=== PATIENT | male | born 2000 | race Caucasian/White ===

== ENCOUNTER 2022-10-12 19:25 | Emergency (ER) | payer OTHER ==
[~2022-10-12] VITALS: Ht 177.8 cm; Wt 86.2 kg
--- NOTE | 2022-10-12 20:06 | ED Lower Extremity ---
General Chief Complaint: Laceration Stated Complaint: NEEDLE STUCK IN RIGHT FOOT Nursing Triage Note: REPORTS PUNCTURE WOUND TO RIGHT PLANTAR FOOT APPROX. 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 Source: patient Exam Limitations: no limitations History of Present Illness Date Seen by Provider: Oct 12, 2022 Time Seen by Provider: 20:01 Initial Comments Patient is a 22-year-old man who presents the ED for foreign body needle stuck in his right foot 2 hours ago at work. Patient was seen at [facility] this evening and had a puncture wound evaluated today secondary to stepping on a nail at work. Patient works at [employer]. States the nail did remove once he lifted his foot up. Attempted laceration repair at [facility] the needle got stuck and lost in his foot. Patient was sent to the ED for removal of the needle and suture placement. Was placed on Cipro and Keflex. Was given crutches. Up-to-date on his tetanus. Patient denies any distal numbness and tingling, nausea, vomiting, diarrhea, chest pain, shortness of breath Allergies and Home Medications Allergies Coded Allergies: No Known Drug Allergies (Unverified , 10/12/22) Patient Home Medication List Home Medication List Reviewed: Yes No Active Prescriptions or Reported Meds Review of Systems Constitutional: No chills, No diaphoresis EENTM: No ear pain, No blurred vision, No double vision Respiratory: No cough, No dyspnea on exertion Cardiovascular: No chest pain, No edema Gastrointestinal: No abdominal pain, No diarrhea, No nausea, No vomiting Musculoskeletal: No back pain, No joint pain; muscle pain Skin: change in color All Other Systems Reviewed Negative Unless Noted: Yes Past Oiqdhxn-Duerbl-Izbquv Hx Patient Social History Tobacco Use?: Yes Substance use?: No Alcohol Use?: Yes Pt feels they are or have been: No Immunizations Up To Date First/Initial COVID19 Vaccinat: NA Past Medical History Surgery/Hospitalization HX: NASAL SX Physical Exam Vital Signs Vital Signs - First Documented 10/12/22 19:35 Temp 36.3 Pulse 80 Resp 16 B/P (MAP) 112/59 (76) Pulse Ox 98 O2 Delivery Room Air Capillary Refill : Less Than 3 Seconds Height, Weight, BMI Height: '" Weight: lbs. oz. 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 as tested, no motor/sensory deficits, alert, normal mood/affect, oriented x 3 Skin: other (2 cm laceration to right plantar foot.) Procedures/Interventions Wound Location: Lower Extremities Other Wound Location Right plantar foot Wound Length (cm): 2 Wound's Depth, Shape: superficial, sub Q Wound Explored: clean Irrigated w/ Saline (ccs): 200 Betadine Prep?: Yes Anesthesia: 1% Lidocaine Volume Anesthetic (ccs): 5 Suture: Ethlion Suture Size: 4-0 Number of Sutures: 4 Layer Closure?: 1 Sterile Dressing Applied?: Yes Progress/Results/Core Measures Results/Orders Vital Signs/I&O 10/12/22 10/12/22 19:35 20:10 Temp 36.3 Pulse 80 84 Resp 16 16 B/P (MAP) 112/59 (76) 110/60 Pulse Ox 98 100 O2 Delivery Room Air Room Air Blood Pressure Mean: 76 Departure Communication (PCP) Patient was sent to the ER from [facility] for lost needle from a suture at the clinic. They Attempted to suture repair a puncture wound to the right foot. Patient does have a jagged 2 cm laceration. Exploratory of the wound after 5 ml lidocaine successful removal of the needle. I was able to place four 4-0 Ethilon sutures loosely to the right foot. Recommend drainage. Extensive irrigation with normal saline and chlorhexidine. Prepped with Betadine. Procedure documented note. 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 Patient does have crutches. Patient has no other complaints peer return precaution were discussed with patient. If worsening symptoms such as redness, swelling, drainage to return back to ED. wound appears clean. Patient is up-to-date on his tetanus Impression Primary Impression: Foot laceration Disposition: 01 HOME, SELF-CARE Condition: Stable Departure-Patient Inst. Decision time for Depature: 20:04 Referrals: NO,LOCAL PHYSICIAN (PCP/Family) Primary Care Physician Patient Instructions: Laceration Repair With Stitches ED Add. Discharge Instructions: Take antibiotics as prescribed. Bear weight as tolerated. Remove sutures in 10 days. Topical Neosporin over the wound. All discharge instructions reviewed with patient and/or family. Voiced understanding. Scripts No Active Prescriptions or Reported Meds DAYANNA MCDONNELL Oct 12, 2022 20:06
[2022-10-12 20:10] VITALS: BP 110/60
== END 2022-10-12 20:11 | disposition home or self-care (01) ==
LOC: ER 19:28
DX: S91.321A Laceration with foreign body, right foot, initial encounter (principal); Z28.310 Unvaccinated for COVID-19; W46.1XXA Contact with contaminated hypodermic needle, initial encounter; W45.0XXA Nail entering through skin, initial encounter; Y92.59 Other trade areas as the place of occurrence of the external cause; Y99.0 Civilian activity done for income or pay
CPT/HCPCS: 12031

== ENCOUNTER 2022-10-21 13:44 | Emergency (ER) | payer OTHER ==
[2022-10-21 14:00] VITALS: BP 121/71
== END 2022-10-21 14:00 | disposition home or self-care (01) ==
LOC: EDUNIT# 13:44 → ER 13:47
DX: Z48.02 Encounter for removal of sutures (principal)